=== PATIENT | male | born 1990 | race Caucasian/White ===

== ENCOUNTER 2016-06-28 22:53 | Emergency (ER) | payer BC ==
[~2016-06-28] VITALS: Ht 182.9 cm; Wt 84.0 kg
[2016-06-28 23:15] VITALS: TEMP 36.7; Ht 182.9 cm; Wt 84.0 kg
[2016-06-28] MEDS ORDERED: ACETAMINOPHEN 500 MG TAB PO STA (23:26)
[2016-06-28] MEDS ORDERED: IBUPROFEN 600 MG TAB PO STA (23:26)
[2016-06-29 00:55] VITALS: BP 163/89; PULSE 70; O2SAT 98
[2016-06-29] MEDS ORDERED: HYDR-5688 PO (00:59)
[2016-06-29] MEDS ORDERED: SULF800T23 PO (00:59)
[2016-06-29] MEDS ORDERED: NORCO 5/325MG HOME PACK PO ONE (01:00)
--- NOTE | 2016-06-29 05:34 | DIAGNOSTIC IMAGING REPORT ---
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 COMPARISON: None. FINDINGS: Slightly displaced right nasal bone fracture. Nondisplaced left nasal bone fracture. Moderate edematous changes and nasal turbinates. All remaining osseous structures are intact. Orbital margins are intact. All remaining major sinuses are clear. IMPRESSION: Fracture Nasal bones. Electronically signed by: Vincenzo Taylor M.D. 06/29/2016 5:32 AM Dictated Date/Time: 06/29/2016 5:30 AM
--- NOTE | 2016-06-29 05:37 | DIAGNOSTIC IMAGING REPORT ---
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 COMPARISON: None. FINDINGS: No fractures. No subluxation. Prevertebral soft tissues and the C1-C2 interval are intact. No pneumothorax. IMPRESSION: No fractures within the cervical spine. Electronically signed by: Vincenzo Taylor M.D. 06/29/2016 5:36 AM Dictated Date/Time: 06/29/2016 5:33 AM
--- NOTE | 2016-06-29 05:41 | DIAGNOSTIC IMAGING REPORT ---
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 Comparison: None. Findings: The paranasal sinuses and mastoid air cells are clear. The calvarium and skull base are intact. The ventricles and sulci are within normal limits. There is no mass, hematoma, midline shift, or acute infarct. Impression: No acute intracranial abnormality. Fracture nasal bones which of been described previously Electronically signed by: Vincenzo Taylor M.D. 06/29/2016 5:40 AM Dictated Date/Time: 06/29/2016 5:37 AM
--- NOTE | 2016-06-30 00:22 | EMERGENCY ROOM VISIT NOTE ---
History First contact with patient: 23:18 Chief Complaint: NASAL PAIN/INJURY Stated Complaint: POSSIBLE FRACTURE NASAL CAVITY-CONCUSSION? History of Present Illness The patient is a 25 year old male who presents to the Emergency Room with complaints of injury to his nose and face after being struck by a baseball. 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 The patient did not lose consciousness but had immediate bleeding from his nose. He does have facial pain and swelling. He does not have vision or hearing changes. No significant neck pain. The patient does not report other injury. He is reportedly healthy and up-to-date on his immunizations. He was attended to by the team trainers and referred to the emergency department for further evaluation. Review of Systems More than 10 systems were reviewed and otherwise negative with the exception of history of present illness. Past Medical/Surgical History No chronic medical disease Family History No pertinent family history Social History Smoking Status: Never Smoker Occupation Status: student Current/Historical Medications Scheduled Sulfa/Trimethoprim (Bactrim Ds 800MG/160MG), 1 TAB PO BID Scheduled PRN Hydrocodone/Acetaminophen 5MG/325MG ([place] 5MG/325MG), 1 TABLET PO Q6 PRN for Pain Allergies Coded Allergies: Amoxicillin (Verified Allergy, Intermediate, HIVES, 06/28/16) Physical Exam Vital Signs Date Time Temp Pulse Resp B/P Pulse Ox O2 Delivery O2 Flow Rate FiO2 06/29/16 00:55 70 18 163/89 98 Room Air 06/28/16 23:15 36.7 71 18 153/96 98 Room Air Pain Rating (0-10): 0 Physical Exam VITALS: Vitals are noted on the nurse's note and reviewed by myself. Vital signs stable. GENERAL: Well-developed, well-nourished, uncomfortable-appearing male who is cooperative with the examination. GCS 15. HEAD: Normocephalic atraumatic. EARS: External ear normal. External auditory canals clear, tympanic membranes pearly davila without erythema or effusion bilaterally. No hemotympanum EYES: Pupils equal round and reactive to light and accommodation. Conjunctivae without injection, sclerae without icterus. Extraocular movements intact. No hyphema NOSE: Notable ecchymosis and edema over the bridge and mid nose. No significant laceration in this area. No septal hematoma appreciated. Dried blood is appreciated in the bilateral nares which otherwise appear patent. MOUTH: Mucous membranes moist. Tonsils are not enlarged. Pharynx without erythema, blood, or exudate. Uvula midline. Airway patent. NECK: Supple without nuchal rigidity. No lymphadenopathy. No thyromegaly. Cervical spine is nontender. HEART: Regular rate and rhythm without murmurs gallops or rubs. LUNGS: Clear to auscultation bilaterally without wheezes, rales or rhonchi. No retractions or accessory muscle use. NEURO: Patient was alert and oriented to person place and time. CN II through XII grossly intact. Deep tendon reflexes 2+ throughout. 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 Comparison: None. Findings: The paranasal sinuses and mastoid air cells are clear. The calvarium and skull base are intact. The ventricles and sulci are within normal limits. There is no mass, hematoma, midline shift, or acute infarct. Impression: No acute intracranial abnormality. 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 COMPARISON: None. FINDINGS: Slightly displaced right nasal bone fracture. Nondisplaced left nasal bone fracture. Moderate edematous changes and nasal turbinates. All remaining osseous structures are intact. Orbital margins are intact. All remaining major sinuses are clear. IMPRESSION: Fracture Nasal bones. 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 COMPARISON: None. FINDINGS: No fractures. No subluxation. Prevertebral soft tissues and the C1-C2 interval are intact. No pneumothorax. IMPRESSION: No fractures within the cervical spine. Medications Administered Medications (Trade) Dose Ordered Sig/Denzel Route Start Time Stop Time Status Last Admin Dose Admin Acetaminophen (Tylenol Tab) 1,000 mg NOW STAT PO 5/5/17 23:26 06/28/16 23:27 DC 06/28/16 23:42 1,000 MG Ibuprofen (Motrin Tab) 600 mg NOW STAT PO 06/28/16 23:26 06/28/16 23:27 DC 06/28/16 23:42 600 MG Acetaminophen/ Hydrocodone Bitart ([place] 5/325mg Home Pack) 1 homepack UD ONCE PO 06/29/16 01:00 06/29/16 01:01 DC 06/29/16 01:15 1 HOMEPACK ED Course Physical exam and history were performed. Nursing notes and EMR were reviewed. Patient appears to have been struck in the face by a thrown baseball. The patient has obvious swelling over the bridge of the nose with tenderness. Due to the nature of his trauma CT scans were performed. The patient was given Tylenol here in the department. The CT scans are as above and do show nasal bone fractures. The patient does not appear to have facial fracture, head bleed, or cervical spine injury. I had a lengthy discussion with the patient and his parents regarding options of care. The patient prefers to follow-up in [place], as that is where he is from for his fractures. This appears reasonable. He was given copies of his CT scans to help assist with this. He will need to see ENT back home. I will give the patient a short course of Bactrim to hopefully prevent infection considering his injury. The patient will also be given a short course of Vicodin for pain control. He may have a mild concussion and will need to follow with his team protocol regarding this. I cannot recommend return to play until he is seen and cleared by ENT. The patient was otherwise invited back to the ER with any new, worsening, or concerning symptoms. The chart was completed utilizing [employer] Speech Voice Recognition Software. Grammatical errors, random word insertions, pronoun errors, and incomplete sentences are an occasional consequence of this system due to software limitations, ambient noise, and hardware issues. Any formal questions or concerns about the content, text, or information contained within the body of this dictation should be directly addressed to the provider for clarification. . Medical Decision Differential diagnosis: Etiologies such as concussion, contusion, fracture, subdural hematoma, epidural hematoma, intraparenchymal hemorrhage, as well as other traumatic pathologies were entertained. Impression Primary Impression: Nasal bone fractures Additional Impressions: Struck by baseball Facial injury Departure Information Dispostion Home / Self-Care Condition GOOD Prescriptions Hydrocodone/Acetaminophen 5MG/325MG ([place] 5MG/325MG) Tab 1 TABLET PO Q6 Y for Pain, #12 TAB For Initial Treatment Prov: Lino Gonzalez PA-C 06/29/16 Sulfa/Trimethoprim (Bactrim Ds 800MG/160MG) Tab 1 TAB PO BID for 7 Days, #14 TAB Prov: Lino Gonzalez PA-C 06/29/16 Forms HOME CARE DOCUMENTATION FORM, IMPORTANT VISIT INFORMATION Patient Instructions [facility] Additional Instructions You were seen and evaluated today on an emergency basis only. This is not a substitute for, or an effort to provide, complete comprehensive medical care. It is not possible to recognize and treat all injuries or illnesses in a single emergency department visit. For this reason it is recommended that you followup with an Ear, Nose, and Throat specialist (ENT) upon arriving home for further care and management. We recommend that you follow-up in 7-[address] scan discs with you. For baseline pain relief you may alternate ibuprofen and acetaminophen every 4 hours for pain control. Take 600 mg ibuprofen (Advil) and then 4 hours later take 1000 mg acetaminophen (Tylenol). Do not take more than 3000 mg acetaminophen in a single day. [place] (hydrocodone/acetaminophen) 5/325 mg every 6 hours as needed for worsening breakthrough pain. Do not drink or drive on [place]. This medication will likely make you tired. Do not take [place] and Tylenol at the same time as both contain acetaminophen. [place] may cause constipation. You may wish to take an [id number] stool softener like Colace if this occurs. Trimethoprim-Sulfamethoxazole(Bactrim DS): Take one pill twice daily for 7 days to prevent infection. All antibiotics can cause diarrhea. If this occurs and you feel worse or it does not resolve in 1-2 days follow up with your doctor or return to the Emergency Department as this could be signs of serious underlying problems. Any medication can cause an allergic reaction, stop the pills immediately and return to the ER for rash, hives, breathing difficulties, or swelling. Avoid activities that may result in further injury until cleared by ENT You may develop a mild concussion symptoms. Please follow with your team providers with any of the symptoms. You are welcome to return to the emergency department anytime with new, worsening, or concerning symptoms. Problem Qualifiers
== END 2016-06-29 01:19 | disposition home or self-care (01) ==
LOC: C.EDB 22:56 → C.EDC 06-29 01:19
DX: S02.2XXA Fracture of nasal bones, initial encounter for closed fracture (principal); S09.93XA Unspecified injury of face, initial encounter; W21.03XA Struck by baseball, initial encounter; Y93.64 Activity, baseball; Y99.0 Civilian activity done for income or pay